=== PATIENT | female | born 1990 | race African-American/Black ===

== ENCOUNTER 2016-06-23 08:40 | Inpatient (IN) | payer OTHER ==
[~2016-06-23] VITALS: Ht 162.6 cm; Wt 99.8 kg
[2016-06-23 10:11] LABS: ABSOLUTE BASOPHIL COUNT 0 /CUMM (0.0-0.2); ABSOLUTE EOSINOPHIL COUNT 0.1 /CUMM (0.0-0.7); ABSOLUTE GRANULOCYTE CT 10.4 /CUMM (1.4-6.5); ABSOLUTE MONOCYTE COUNT 0.9 /CUMM (0.10-0.60); BASOPHIL % 0.3 % (0.0-2.0); EOSINOPHIL % 0.5 % (0-5); HEMATOCRIT 34.1 % (37-47); MEAN CORPUSCULAR HGB CONC 32.4 G/DL (33.0-37.0); MEAN CORPUSCULAR VOLUME 80.2 FL (81.0-99.0); MEAN PLATELET VOLUME 8.9 FL (7.4-10.4); RBC DISTRIBUTION WIDTH 16.1 % (11.5-14.5); RED BLOOD CELL CT 4.25 /CUMM (4.20-5.40)
[2016-06-23 10:45] LABS: GRANULOCYTE % 77.7 % (42.2-75.2); PLATELET COUNT 295 /CUMM (130-400); WHITE BLOOD CELL COUNT 13.5 /CUMM (4.8-10.8)
--- NOTE | 2016-06-24 14:06 | History & Physical ---
General Information and HPI MD Statement: I have seen and personally examined SARA HOWARD and documented this H&P. The patient is a 26 year old female at39 [] weeks and 6[] days gestation who presented with a chief complaint of [IOL;]. Source of Information: police History of Present Illness: COMPLETE PNC; FOB NOT INVOLVED; ELECTIVE IOL Allergies/Medications Allergies: Coded Allergies: No Known Allergies (06/23/16) Past History vinyl cutter History : 2 Para: 0 Last Menstrual Period: 09/18/15 Estimated Delivery Date: 06/24/16 Past vinyl cutter History: none Surgical History Pertinent Surgical History: none Past Family/Social History Psychosocial History Smoking Status: Never Smoked Review of Systems Review of Systems Constitutional: Reports: no symptoms. EENTM: Reports: no symptoms. Cardiovascular: Reports: no symptoms. Respiratory: Reports: no symptoms. GI: Reports: no symptoms. Genitourinary: Reports: no symptoms. Musculoskeletal: Reports: no symptoms. Skin: Reports: no symptoms. Neurological/Psychological: Reports: no symptoms. Hematologic/Endocrine: Reports: no symptoms. Immunologic/Allergic: Reports: no symptoms. All Other Systems: Reviewed and Negative Exam & Diagnostic Data Last 24 Hrs of Vital Signs/I&O VSS Obstetric Exam Wgt Gained During : 36 Pelvimetry: GYNECOID Dilation (cm): 0 Effacement (%): 0 Station: -2 Membranes: intact Fluid: unknown Fundal Height (cm): 40 Multiple Gestation? No Contractions: NONE #1 - FHR Baseline: 125 Category: 1 Estimated Weight: 7 Presentation: CEPHALIC Patient for Induction? Yes Altman Score Altman Score Response Value Cervix Position: anterior 2 Cervix Consistency: soft 2 Cervix Effacement: 0-30% 0 Cervix Dilation: closed 0 Cervix Station: -2 1 Total 5 Physical Exam: heent: ncat cHEST: cta cv: NL s1s2 ABD: CEPHALIC, EFW 7 eXT: NO C/C/E Labs Blood Type & Rh: O POS Antibody Screen: NEG Hct/Hgb & Platelets #1: 39/264 Hct/Hgb & Platelets #2: 34317 Rubella: IMM VDRL #1: NR VDRL #2: NR HbsAg: NEG HIV #1: NEG HIV #2 NEG 1 Hr P Group B Strep: NEG Initial Ultrasound: WNL Anatomy Ultrasound: WNL Genetic Testing: NEG Assessment/Plan Assessment/Plan: TERM ELECTIVE IOL As Ranked By This Provider Problem List: 1. Core Measures/Miscellaneous Shepherd Catheter Date In: 06/24/16 Still Needed? Yes Venous Thromboembolism VTE Risk Factors: /, Surgery VTE Contraindications: No Contraindications VTE Prophylaxis Ordered Inpt: Mech & Pharm VTE Diagnosis: No VTE Type: NONE VTE Confirmed by (Test): NONE Beta Briana Is Beta Briana a Home Med? No If Yes, Was This Ordered Today? No Antibiotics Is Patient on Antibiotics? No
[2016-06-25 08:02] LABS: ABSOLUTE BASOPHIL COUNT 0 /CUMM (0.0-0.2); ABSOLUTE EOSINOPHIL COUNT 0 /CUMM (0.0-0.7); ABSOLUTE GRANULOCYTE CT 25.9 /CUMM (1.4-6.5); ABSOLUTE LYMPH COUNT 2.1 /CUMM (1.2-3.4); ABSOLUTE MONOCYTE COUNT 1.8 /CUMM (0.10-0.60); BASOPHIL % 0.1 % (0.0-2.0); EOSINOPHIL % 0 % (0-5); GRANULOCYTE % 86.8 % (42.2-75.2); HEMATOCRIT 33.4 % (37-47); MEAN CORPUSCULAR HGB 26.1 PG (27.0-31.0); MEAN CORPUSCULAR HGB CONC 32.7 G/DL (33.0-37.0); MEAN CORPUSCULAR VOLUME 79.9 FL (81.0-99.0); MEAN PLATELET VOLUME 9.2 FL (7.4-10.4); PLATELET COUNT 305 /CUMM (130-400); RBC DISTRIBUTION WIDTH 16.3 % (11.5-14.5); RED BLOOD CELL CT 4.18 /CUMM (4.20-5.40)
[2016-06-25 08:18] LABS: WHITE BLOOD CELL COUNT 29.8 /CUMM (4.8-10.8)
--- NOTE | 2016-06-25 16:41 | Cons- Psychiatry ---
Psychiatric Consult Date of Consult: 06/25/16 Reason for Consult: "History of depression, status post " History of Present Illness: CC: "I feel fine now" HPI: 26-year-old single [place] [facility]. This is her first child. Prior to her patient attempted to join the but subsequently failed the swim assessment and would require restarting boot camp. 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 Prior to being able to restart boot camp she found out she was and had a falling out with the father. She subsequently fell into a depressive episode which she reports has now resolved due to counseling she received with Facundo Julian LCSW ([phone]). She does report a feeling of being "stuck" in terms of reaching her career goals but has been using "positive thinking." The patient plans to move to [place] to live with her sister at the end of the month. Spoke to Facundo Julian LCSW who reports the patient suffers from "definite severe depression" but has never carried a formal diagnosis in the past. She has been seeing the patient since April 22 of last year. She reports that the patient has never been a concern in terms of self-harm however she is concerned about the patient's connection with her baby due to the relationship with the father. She is planning to visit the patient in hospital tomorrow () between the hours of 11 AM and 1 PM. She asks about the possibility of starting the patient on an antidepressant. She will be following up with the patient post discharge. Per nursing report patient cried yesterday and today and at one point reported that she was in bed for 9 months due to depression. She displayed some anxious fixation on certain things. She also reported that when she eats unhealthy food she consumes laxatives. The report should they she has been very attentive to and appropriate with her baby however was initially very disappointed that it was a girl and gave the child a unisex name "Gamal." The patient plans to breast-feed. PMH: Please see the H&P for a complete listing None Past Psych History: No previous diagnosis -Outpatient None prior to April of this year talk therapy with Facundo Julian LCSW -Inpatient Denies Family Psych History: Denies Substance History Denies Family Substance History: Brother ETOH Social: Single. College graduate, BS in sociology from [employer]. Abuse/Trauma: Denies Current Home Psychotropic Medications: None Current Hospital Psychotropic Medications: None Allergies: Coded Allergies: No Known Allergies (06/23/16) Current Medications: Med Diphenhydramine HCl 25 MG IV Q6P PRN 06/24/16 1600 Enoxaparin Sodium 40 MG SC DAILY@0230 06/25/16 0230 Ibuprofen 800 MG PO Q6P PRN 06/24/16 1415 Lactated Ringer's 1,000 ML IV Q6H 06/24/16 1415 Metoclopramide HCl 10 MG IV Q6P PRN 06/24/16 1600 Misoprostol 25 MCG VAG Q4 06/23/16 1000 Naloxone HCl 0.2 MG IV .EVERY 5 MINUTES PRN 06/24/16 1545 Oxycodone/Acetaminophen 1 TAB PO Q4P PRN 06/25/16 1130 Oxycodone/Acetaminophen 2 TAB PO Q4P PRN 06/25/16 1130 Oxytocin 30 UNITS IV PER PROTOCL 06/24/16 0845 Lactated Ringer's 500 ML Past History Past Medical History Neurological: NONE EENT: NONE Cardiovascular: NONE Respiratory: NONE Gastrointestinal: NONE Hepatic: NONE Renal: NONE Musculoskeletal: NONE Psychiatric: NONE Endocrine: NONE Blood Disorders: NONE Cancer(s): NONE PROCEDURAL NURSE/Reproductive: NONE Past Surgical History Surgical History: , 1 Psychosocial History Strengths/Capabilities: Supportive family, well-educated, motivated Physical Limitations (Interventions): Recent surgery, recent depression Psychiatric Treatment History Psych Treatment Psychiatric Treatment Yes (As above) Diagnosis: No previous diagnosis Substance Use/Abuse History Drug Use/Abuse Substances Used/Abused No Substance Abuse Treatment Substance Abuse Treatment Past Substance Abuse [place] No Assessment/Plan Mental Status Orientation: Person, Place, Situation Affect: WNL Speech: WNL Neuro-vegetative: WNL Mental Status Exam: Mental Status Exam Presentation/Appearance: Cooperative with evaluation. Lying in bed in hospital garb. Her mother sits at bedside and her child is sleeping at her side. Well- groomed Orientation: x4 Sensorium: Awake and alert Eye contact: Appropriate Affect: Broad congruent with stated mood Mood: "I'm fine now" Depression: Reports 5 out of 10 (10 worst) but states this is a great improvement than earlier in her when it was 10 out of 10 Anxiety: Denies Thought Content: - Denies SI/HI, AH/VH, PI. States and also believes they will not kill themselves. - Denies Hopeless/Helpless Thoughts Thought Process: Linear and goal directed Speech: Normal tone and rate and rhythm Judgment: Intact Insight: Fair Cognition: Memory: Grossly intact Attention/Concentration: Grossly intact Brief ROS Gait: Reports she ambulated for 1 hour today Sleep: Reports adequate sleep yesterday Appetite: Adequate Energy: Adequate IADLs/ADLs: Independent Lab Results: Laboratory Tests 06/25/16 0620: CBC w Diff MAN DIFF ORDERED, RBC 4.18 L, MCV 79.9 L, MCH 26.1 L, RDW 16.3 H, MPV 9.2, Gran % 86.8 H, Lymphocytes % 7.0 L, Monocytes % 6.1, Eosinophils % 0, Basophils % 0.1, Absolute Granulocytes 25.9 H, Segmented Neutrophils 84 H, Band Neutrophils 2, Absolute Lymphocytes 2.1, Lymphocytes 6 L, Monocytes 7, Absolute Monocytes 1.8 H, Eosinophils 1, Absolute Eosinophils 0, Absolute Basophils 0, Platelet Estimate VERIFIED BY SMEAR, Normocytic RBCs VERIFIED, Normochromic RBCs VERIFIED, PUBS MCHC 32.7 L 06/23/16 0939: CBC w Diff NO MAN DIFF REQ, RBC 4.25, MCV 80.2 L, MCH 26.0 L, RDW 16.1 H, MPV 8.9, Gran % 77.7 H, Lymphocytes % 15.0 L, Monocytes % 6.5, Eosinophils % 0.5, Basophils % 0.3, Absolute Granulocytes 10.4 H, Absolute Lymphocytes 2.0, Absolute Monocytes 0.9 H, Absolute Eosinophils 0.1, Absolute Basophils 0, PUBS MCHC 32.4 L, Urine Color YEL, Urine Clarity HAZY H, Urine pH 6.5, Ur Specific Humphrey 1.020, Urine Protein 30 H, Urine Ketones NEG, Urine Nitrite NEG, Urine Bilirubin NEG, Urine Urobilinogen 0.2, Ur Leukocyte Esterase SMALL H, Ur Microscopic SEDIMENT EXAMINED, Urine RBC 1-3, Urine WBC 3-5 H, Ur Epithelial Cells PACKD H, Urine Mucus RARE, Urine Hemoglobin NEG, Urine Glucose NEG Microbiology 06/24 1409 URINE ROUT: Urine Culture - CAN Cancelled: DUPLICATE 06/24 1342 URINE ROUT: Urine Culture - RES Diffential Diagnosis: Major depressive disorder, single episode, moderate, with peripartum onset Impression: 26-year-old single Greyson Rodriguez Gabonese female presents with depression with the peripartum onset which she attributes to situational factors including failing out of boot camp and a falling out with her child's father. While the patient denies depression at present she continues to endorse a moderate level of sadness and is at high risk for rebound depression. At present she is not risk to self or others, including her child, but she may be if depression returns. Provisional Treatment Plan: 1. Follow-up psychiatric care with Facundo Julian LCSW, appointment time and date pending confirmation of discharge plans. 2. We will plan to attempt to meet with therapist between 11- when she is at the hospital tomorrow to work on plan for aftercare as well as plan to encourage patient to accept antidepressant medication. Please page psychiatry when therapist is on unit. 3. Patient would benefit from initiation of antidepressant if she agrees to medication. Would appreciate erp consultant recommendation for meds. 4. Encourage the patient to seek psychiatric care in [place] after she moves. Therapist will help in this process or facilitate referral. Thank you for including psychiatry in this case we'll continue to follow. Lucas Keller APRN, pager [phone]
[2016-06-26 19:30] LABS: ABSOLUTE BASOPHIL COUNT 0 /CUMM (0.0-0.2); ABSOLUTE EOSINOPHIL COUNT 0.1 /CUMM (0.0-0.7); ABSOLUTE GRANULOCYTE CT 11.9 /CUMM (1.4-6.5); ABSOLUTE LYMPH COUNT 4.3 /CUMM (1.2-3.4); ABSOLUTE MONOCYTE COUNT 0.9 /CUMM (0.10-0.60); BASOPHIL % 0.2 % (0.0-2.0); EOSINOPHIL % 0.7 % (0-5); GRANULOCYTE % 69.1 % (42.2-75.2); HEMATOCRIT 32.8 % (37-47); MEAN CORPUSCULAR HGB 25.8 PG (27.0-31.0); MEAN CORPUSCULAR HGB CONC 31.8 G/DL (33.0-37.0); MEAN CORPUSCULAR VOLUME 81.1 FL (81.0-99.0); MEAN PLATELET VOLUME 8.4 FL (7.4-10.4); PLATELET COUNT 336 /CUMM (130-400); RBC DISTRIBUTION WIDTH 16.3 % (11.5-14.5); RED BLOOD CELL CT 4.05 /CUMM (4.20-5.40); WHITE BLOOD CELL COUNT 17.2 /CUMM (4.8-10.8)
--- NOTE | 2016-06-26 21:06 | PN- Psychiatry ---
Assessment/Plan Impression: I visited the patient today, Wednesday, to 2016, at 1230 in childbirth room 301. The patient's supportive mother, and her therapist, Facundo Hughes LCSW, were present. The patient was agreeable to the visit, which was interrupted by minor difficulty with breast-feeding her daughter. Pura, her registered nurse, and Daren Cazares RN, farm consultant were present and supportive. When I returned to the room after briefly introducing myself, the patient reported that she did not want to start any medication at this time. Her therapist, reports that she has been making good progress since they started sessions together in April 2016. The patient had been deeply depressed during her , but was showing improvement with talk therapy alone. The patient had been disappointed that she failed her [employer] swimming exam, and had been hoping that an [employer] career would have led to a later career in law enforcement. I did not have the opportunity to speak to the patient alone about her objection to antidepressant medication, and wonder if she feels that the use of this medication might jeopardize future career plans. I had a brief discussion with the patient, the therapist, and her mother about the possibility of medication such as sertraline/Zoloft, which has reasonable good evidence for safety in lactating patients. We reviewed the onset, symptoms and signs of blues, which are often mild, and of brief duration immediately after giving . We then discussed the same factors for depression. The patient verbalizes understanding that presentation of these signs or symptoms require her to notify her provider or call 911, or come to the hospital ED. Patient indicates that she has had a falling out with the child's father, and will be caring for the baby alone, with help from her mother while she is in [place], and perhaps her sister when she moved to [place]. I have offered the services of [facility] outpatient psychiatry for medication monitoring, only, and the patient and her therapist promise they will keep this in mind. Also, the patient has been planning to move to [place] in approximately one month to be near her sister, and the therapist, Facundo Julian LCSW, is her ready arranging a transfer of care down there. Suggestion: 1. Patient is clear for discharge from a psychiatric point of view. 2. When the patient returns for her well-baby visit, please mention that we would be happy to talk with her again, if she has changed her mind about coming to outpatient psychiatry for evaluation and treatment of depression. Please contact us at pager [phone], if she indicates willingness to do this. Thank you for asking us to participate in Marta's care. Jonathan Alex APRN, pager [phone]. Subjective Subjective: Alert and oriented. Denies suicidal or homicidal ideation. States that she feels safe to be home with her baby. Denies auditory or visual hallucinations, and presents no rosio delusions. Insight and judgment intact. Thought processes logical and linear. Objective Current Medications: Current Medications Sig/[place] Start time Last Medication Dose Route Stop Time Status Admin Diphenhydramine HCl 25 MG Q6P PRN 06/24 1600 DC 06/25 IV 0023 Enoxaparin Sodium 40 MG DAILY@0230 06/25 0230 AC 06/25 SC 0311 Ibuprofen 800 MG .STK-MED ONE 06/26 1143 DC PO 06/26 1144 Ibuprofen 800 MG .STK-MED ONE 06/26 0501 DC PO 06/26 0502 Ibuprofen 800 MG Q6P PRN 06/24 1415 AC 06/26 PO 1941 Lactated Ringer's 1,000 ML Q6H 06/24 1415 DC 06/25 IV 0310 Metoclopramide HCl 10 MG Q6P PRN 06/24 1600 DC IV Misoprostol 25 MCG Q4 06/23 1000 DC 06/23 VAG 0942 Naloxone HCl 0.2 MG .EVERY 5 MINUTES PRN 06/24 1545 DC IV Oxycodone/ 1 TAB Q4P PRN 06/25 1130 AC 06/25 Acetaminophen PO 1126 Oxycodone/ 2 TAB Q4P PRN 06/25 1130 AC 06/26 Acetaminophen PO 1508 Oxytocin 30 UNITS PER PROTOCL 06/24 0845 DC 06/24 Lactated Ringer's 500 ML IV 0838 Results Last 24 Hrs of Labs/Mics: Laboratory Tests 06/26 1840 Hematology CBC w Diff NO MAN DIFF REQ WBC (4.8 - 10.8 /CUMM) 17.2 H RBC (4.20 - 5.40 /CUMM) 4.05 L Hgb (12.0 - 16.0 G/DL) 10.4 L Hct (37 - 47 %) 32.8 L MCV (81.0 - 99.0 FL) 81.1 MCH (27.0 - 31.0 PG) 25.8 L RDW (11.5 - 14.5 %) 16.3 H Plt Count (130 - 400 /CUMM) 336 MPV (7.4 - 10.4 FL) 8.4 Gran % (42.2 - 75.2 %) 69.1 Lymphocytes % (20.5 - 51.1 %) 24.7 Monocytes % (1.7 - 9.3 %) 5.3 Eosinophils % (0 - 5 %) 0.7 Basophils % (0.0 - 2.0 %) 0.2 Absolute Granulocytes (1.4 - 6.5 /CUMM) 11.9 H Absolute Lymphocytes (1.2 - 3.4 /CUMM) 4.3 H Absolute Monocytes (0.10 - 0.60 /CUMM) 0.9 H Absolute Eosinophils (0.0 - 0.7 /CUMM) 0.1 Absolute Basophils (0.0 - 0.2 /CUMM) 0 PUBS MCHC (33.0 - 37.0 G/DL) 31.8 L
[2016-06-27] MEDS ORDERED: PERCOCET 5-3251 EACH PO (11:33)
[2016-06-27] MEDS ORDERED: IBUPROFEN800 M1 PO (11:33)
[2016-06-27] MEDS ORDERED: DOCUSATE SODIU100 M3 PO (11:33)
--- NOTE | 2016-06-27 11:37 | PN- Post Delivery/GYN ---
Subjective Subjective: no c/o Review of Systems: neg Objective Last 24 Hrs of Vital Signs/I&O vss Physical Exam: incision c/d/i ext nt Assessment/Plan Assessment/Plan s/p c/s pod3 stable discharge home Problem List: 1.
--- NOTE | 2016-07-01 12:12 | Operative Report ---
Operative/Inv Procedure Report Surgery Date: 06/24/16 Name of Procedure: Primary Pre-Operative Diagnosis: Nonreassuring heart tracingg Post-Operative Diagnosis: Same Estimated Blood Loss: 700 mL Surgeon/Packing House Laborer: TERESA CARLOS MD,GET Rdz M.D. Anesthesia: spinal Operative/Procedure Note Note: The patient was brought to the operating room and placed on the OR table in the sitting position where she underwent spinal anesthetic. She is prepped and draped in the usual sterile fashion. Shepherd catheter was inserted and drained clear yellow urine. A low abdominal Pfannenstiel skin incision was made with a scalpel and taken down to layer of the fascia. Fascia was nicked in the midline and extended bilaterally. The peritoneum was entered bluntly. A low transverse uterine incision was made. A liveborn infant was delivered atraumatically and handed off to the waiting relationship executive. The placenta was then manually removed. The uterus was closed in 2 layers second imbricating the first of o Polysorb. The abdomen was irrigated. The fascia was closed with 0 Polysorb in a running nonlocking fashion. Subcutaneous tenderness tissues were irrigated and coagulated. Skin was closed with raffy. Sterile dressing was applied to the wound. Patient was sent to recovery in good condition all needle, sponge, and instrument counts were correct at the end of the procedure.
--- NOTE | 2016-07-01 12:13 | Labor & Delivery Summary ---
Delivery Summary Section: Section: primary Baby's Weight: 6-112 Apgars - 1 Min: 9 Apgars - 5 Min: 9
--- NOTE | 2016-07-01 12:15 | Surgical Discharge Summary ---
Visit Information Visit Dates Admission Date: 06/23/16 Discharge Date: 06/27/16 History of Present Illness Chief Complaint: Status post Medical History Neurological: NONE EENT: NONE Cardiovascular: NONE Respiratory: NONE Gastrointestinal: NONE Hepatic: NONE Renal: NONE Musculoskeletal: NONE Psychiatric: NONE Endocrine: NONE Blood Disorders: NONE Cancer(s): NONE CUSTOMER EXPERIENCE SPECIALIST/Reproductive: NONE Surgical History Pertinent Surgical History: none, Psychosocial History What is Your Primary Language? Argentine Review of Systems: Negative Hospital Course Course Attending Physician: GET BANUELOS MD Primary Care Physician: FAUSTINO BHAT,[facility] Course: The patient underwent induction of labor and was noted to have nonreassuring heart rate testing today. She was taken for primary and sent to recovery in good condition. On postoperative day #1 patient was doing well as discontinued diet was advance activity was increased and she was seen by psychiatry. Operative day #2 the patient was continuing to well tolerating a regular diet voiding and ambulating and with a plan of action with psychiatry. Degenerative the patient was discharged home Allergies: Coded Allergies: No Known Allergies (06/23/16) Disposition Summary Disposition Principal Diagnosis: Term Additional Diagnosis: Nonreassuring heart rate testing Discharge Disposition: home or self care Discharge Instructions General Discharge Information Code Status: Full Code Patient's Diet: Regular Patient's Activity: Pelvic rest Follow-Up Instructions/Appts: 1 week Medications at Discharge Discharge Medications: Start taking the following new medications: Ibuprofen (Ibuprofen) 800 MG TABLET 800 Milligram ORAL EVERY SIX HOURS NEEDED as needed for UTERINE CRAMPING Qty = 36 No Refills Comments: Last Taken:06/27/16 Time:850 Oxycodone HCl/Acetaminophen (Percocet 5-325 MG Tablet) 5 MG-325 MG TABLET 1 Tablet ORAL EVERY 4 HOURS NEEDED as needed for PAIN SCALE 4-6 (MODERATE ) Qty = 24 No Refills Comments: Last Taken:06/27/16 Time:0851 Docusate Sodium (Docusate Sodium) 100 MG CAPSULE 100 Milligram ORAL TWICE DAILY Qty = 60 No Refills Comments: Last Taken:06/26/17 Time:2101
== END 2016-06-27 14:10 | DRG 540 ==
LOC: GNO 08:40
PROVIDERS: ADMIT Obstetrics & Gynecology
PROC: 10D00Z1 Extraction of Products of Conception, Low, Open Approach (ICD-10-PCS; principal; 2016-06-24)
DX: O76 Abnormality in fetal heart rate and rhythm complicating labor and delivery (principal); Z3A.40 40 weeks gestation of pregnancy; Z37.0 Single live birth
CPT/HCPCS: GNOP; GNOS; 36415; 81001; 87086; 88307; 99232; 99233; J0690; J1100; J1200; J1650; J1885; J7120